=== PATIENT | female | born 2000 | race African-American/Black ===

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

== ENCOUNTER 2022-01-12 06:31 | Emergency (ER) | payer OTHER, SELFPAY ==
[2022-01-12] MEDS ORDERED: Dexamethasone 20 MG/5 ML VIAL ONE (06:54)
[2022-01-12] MEDS ORDERED: Racepinephrine 2.25% 0.5 ML NEB ONE (07:32)
[2022-01-12] MEDS ORDERED: Sodium Chloride For Inhalation 0.9% 3 ML NEB ONE (07:34)
== END 2022-01-12 08:23 | disposition home or self-care (01) ==
LOC: NAV ERS 06:31
DX: J20.9 Acute bronchitis, unspecified (principal)
CPT/HCPCS: 71045; 94640; 94760; 96372; J1100; J7620

== ENCOUNTER 2024-08-12 12:42 | Emergency (ER) | payer SELFPAY ==
[2024-08-12] MEDS ORDERED: Sodium Chloride For Inhalation 0.9% 3 ML NEB ONE (13:00)
[2024-08-12] MEDS ORDERED: Racepinephrine 2.25% 0.5 ML NEB ONE (13:00)
[2024-08-12] MEDS ORDERED: Dexamethasone 10 MG/ML VIAL ONE (13:25)
== END 2024-08-12 14:15 | disposition home or self-care (01) ==
LOC: NAV ERS 12:42
DX: R06.1 Stridor (principal)
CPT/HCPCS: 96372; J1100